=== PATIENT | female | born 1965 ===

== ENCOUNTER 2021-04-21 11:15 | Inpatient (IN) | payer OTHER ==
[~2021-04-21] VITALS: Ht 157.5 cm; Wt 73.0 kg
== END 2021-04-24 14:43 | disposition home or self-care (01) | DRG 743 ==
LOC: O/R 04-22 05:05 → OB/GYN 04-22 09:30
PROVIDERS: ADMIT Obstetrics & Gynecology; ATTEND Obstetrics & Gynecology
PROC: 0UB70ZZ Excision of Bilateral Fallopian Tubes, Open Approach (ICD-10-PCS; 2021-04-22)
PROC: 0UB10ZZ Excision of Left Ovary, Open Approach (ICD-10-PCS; 2021-04-22)
PROC: 0UT90ZZ Resection of Uterus, Open Approach (ICD-10-PCS; principal; 2021-04-22 09:30)
DX: D25.1 Intramural leiomyoma of uterus (principal); D25.0 Submucous leiomyoma of uterus; D25.2 Subserosal leiomyoma of uterus; N83.02 Follicular cyst of left ovary; R10.2 Pelvic and perineal pain; N93.8 Other specified abnormal uterine and vaginal bleeding; Z30.2 Encounter for sterilization